=== PATIENT | female | born 1980 | race Hispanic/Latino ===

== ENCOUNTER 2022-03-03 16:55 | Emergency (ER) | payer SELFPAY ==
[2022-03-03 23:29] VITALS: BP 102/58
[2022-03-04] MEDS ORDERED: CLINDAMYCIN 300 MG CAP PO ONE (00:46)
[2022-03-04] MEDS ORDERED: traMADol 50 MG TAB PO ONE (00:46)
--- NOTE | 2022-03-04 00:57 | Emergency Department Report ---
ED General Adult HPI - General Chief complaint: Skin/Abscess/Foreign Body Stated complaint: FACIAL PAIN Time Seen by Provider: 03/04/22 00:46 Source: patient Mode of arrival: Ambulatory Limitations: No Limitations - History of Present Illness Initial comments: Patient 41-year-old female who presents for dental pain and right lower jaw swelling x2 days. Patient states history of dental caries. States been unable to see dentist. In route to [place] or at this time. Patient states pain is 5/10 exacerbated by hot and cold stimuli. Patient is tolerating p.o. intake however. There is no fever or chills. No ear or throat pain. Patient endorses allergies to penicillins. Patient will be traveling to [facility] via POV and family member. Patient is not driving.. Severity scale (0 -10): 2 - Related Data Previous Rx's Medication Instructions Recorded Last Taken Type Chlorhexidine Mouthwash [Peridex] 15 ml MM BID #1 bottle 03/04/22 Unknown Rx Clindamycin [Clindamycin CAP] 300 mg PO Q6H 7 Days #28 cap 03/04/22 Unknown Rx traMADoL [Ultram] 50 mg PO Q6HR PRN #12 tablet 03/04/22 Unknown Rx Allergies Allergy/AdvReac Type Severity Reaction Status Date / Time Penicillins Allergy Unknown Verified 03/03/22 17:59 ED Review of Systems ROS: Stated complaint: FACIAL PAIN Other details as noted in HPI Constitutional: denies: chills, fever Eyes: denies: eye pain, eye discharge, vision change ENT: dental pain Respiratory: denies: cough, shortness of breath, wheezing Cardiovascular: denies: chest pain, palpitations Endocrine: no symptoms reported Gastrointestinal: denies: abdominal pain, nausea, diarrhea Genitourinary: denies: urgency, dysuria, discharge Musculoskeletal: denies: back pain, joint swelling, arthralgia Skin: denies: rash, lesions Neurological: denies: headache, weakness, paresthesias Psychiatric: denies: anxiety, depression Hematological/Lymphatic: denies: easy bleeding, easy bruising ED Past Medical Hx - Past Medical History Previous Medical History?: No - Medications Home Medications: Home Medications Medication Instructions Recorded Confirmed Last Taken Type Chlorhexidine Mouthwash [Peridex] 15 ml MM BID #1 bottle 03/04/22 Unknown Rx Clindamycin [Clindamycin CAP] 300 mg PO Q6H 7 Days #28 cap 03/04/22 Unknown Rx traMADoL [Ultram] 50 mg PO Q6HR PRN #12 tablet 03/04/22 Unknown Rx ED Physical Exam - General Limitations: No Limitations General appearance: alert, in no apparent distress - Head Head exam: Present: normocephalic, normal inspection - Eye Eye exam: Present: EOMI Pupils: Present: normal accommodation - ENT ENT exam: Present: normal orophraynx, mucous membranes moist, TM's normal bilaterally - Expanded ENT Exam Expanded Mouth exam: Absent: trismus Teeth exam: Present: dental caries, fractured tooth # (30 erythema mild warmth swelling) Throat exam: Negative: tonsillar erythema, tonsillomegaly, tonsillar exudate, R peritonsillar mass, L peritonsillar mass - Neck Neck exam: Present: normal inspection, full ROM. Absent: tenderness, lymphadenopathy - Respiratory Respiratory exam: Present: normal lung sounds bilaterally. Absent: respiratory distress, wheezes, stridor - Cardiovascular Cardiovascular Exam: Present: regular rate, normal rhythm, normal heart sounds. Absent: systolic murmur, diastolic murmur, rubs, gallop - GI/Abdominal GI/Abdominal exam: Present: soft, normal bowel sounds. Absent: distended, tenderness - Rectal Rectal exam: Present: deferred - Extremities Exam Extremities exam: Present: normal inspection, full ROM, normal capillary refill - Back Exam Back exam: Present: normal inspection, full ROM. Absent: CVA tenderness (R), CVA tenderness (L) - Neurological Exam Neurological exam: Present: alert, oriented X3, CN II-XII intact, normal gait - Psychiatric Psychiatric exam: Present: normal affect, normal mood - Skin Skin exam: Present: warm, dry, intact, normal color. Absent: rash ED Course Vital Signs 03/03/22 03/03/22 17:57 23:28 Temperature 98.4 F 99.1 F Pulse Rate 87 83 Respiratory 16 20 Rate Blood Pressure 124/83 Blood Pressure 102/58 [Left] O2 Sat by Pulse 99 Oximetry ED Medical Decision Making - Medical Decision Making Noted dental caries tooth #30 mild gum erythema and swelling no focal abscess. There is no trismus. Airway is patent patient is tolerating p.o. intake. There is no fever or chills. Plan DC to home with prescriptions. Follow-up with dentist in 1 to 2 days. Return to emergency department should symptoms worsen. Patient verbalized agreement understanding with discharge plan. Patient DC'd to home in stable condition via family member POV at this time. Critical care attestation.: If time is entered above; I have spent that time in minutes in the direct care of this critically ill patient, excluding procedure time. ED Disposition Clinical Impression: Infected dental caries Disposition: HOME / SELF CARE / HOMELESS Is pt being admited?: No Does the pt Need Aspirin: No Condition: Stable Instructions: Dental Abscess, [id number], Preventive Dental Care, Adult Additional Instructions: Take medications as prescribed. Follow-up with your dentist in 1 to 2 days. Return to emergency department should symptoms worsen. Prescriptions: Clindamycin [Clindamycin CAP] 300 mg PO Q6H 7 Days #28 cap Chlorhexidine Mouthwash [Peridex] 15 ml MM BID #1 bottle traMADoL [Ultram] 50 mg PO Q6HR PRN #12 tablet PRN Reason: Pain Referrals: [facility] [Outside] - 3-5 Days Forms: Work/School Release Form(ED) Time of Disposition: 00:59
== END 2022-03-04 01:34 | disposition home or self-care (01) ==
LOC: ED 16:55
DX: K02.9 Dental caries, unspecified (principal); Z88.0 Allergy status to penicillin; Z79.899 Other long term (current) drug therapy
CPT/HCPCS: 99282